=== PATIENT | female | born 1995 | race Caucasian/White ===

== ENCOUNTER 2018-04-27 08:53 | Emergency (ER) | payer BC ==
[~2018-04-27] VITALS: Ht 167.6 cm; Wt 92.5 kg
[2018-04-27 09:03] VITALS: Ht 167.6 cm; Wt 92.5 kg
[2018-04-27 10:01] VITALS: BP 118/74
== END 2018-04-27 10:01 | disposition home or self-care (01) ==
LOC: ED 08:53
DX: F14.10 Cocaine abuse, uncomplicated (principal); F41.9 Anxiety disorder, unspecified
CPT/HCPCS: J2060

== ENCOUNTER 2020-12-08 19:00 | Emergency (ER) | payer BC, SELFPAY ==
[~2020-12-08] VITALS: Ht 165.1 cm; Wt 81.6 kg
[2020-12-08 19:01] VITALS: BP 136/81; Ht 165.1 cm; Wt 81.6 kg
== END 2020-12-08 21:16 | disposition home or self-care (01) ==
LOC: ED 19:00
DX: R07.89 Other chest pain (principal); R51.9 Headache, unspecified; R05 Cough; Z20.828 Contact with and (suspected) exposure to other viral communicable diseases